=== PATIENT | female | born 2000 | race Caucasian/White ===

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

== ENCOUNTER 2022-02-12 10:43 | Emergency (ER) | payer OTHER, MEDICAID, SELFPAY ==
[2022-02-12 11:02] VITALS: BP 124/93; PULSE 93; RESP 19; TEMP 36.5; O2SAT 97
[2022-02-12 11:16] LABS: Appearance Urine UA SL CLOUDY; Bilirubin Urine UA NEGATIVE (NEGATIVE); Color Urine UA YELLOW; Glucose Urine UA NEGATIVE (Negative); Ketones Urine UA NEGATIVE (NEGATIVE); Leukocyte Esterase Urine UA NEGATIVE (NEGATIVE); Nitrite Urine UA NEGATIVE (Negative); Occult Blood Urine UA 3+ (Negative); Protein Urine UA NEGATIVE (Negative); Urobilinogen Urine UA 0.2 E.U./dL (0.2)
[2022-02-12 11:18] LABS: Pregnancy Test Urine Negative (Negative)
[2022-02-12 11:28] LABS: Bacteria Urine Occasional (0-1); Culture Indicated Urine Cult Not Indicated; RBC Urine 30-100/HPF (0-5/HPF); Squamous Epithelial Cell Urine 1-5 /HPF (0-5/HPF); Transitional Epi Cells Urine 1-5/HPF (0-5/HPF); WBC Urine 0-1/HPF (0-5/HPF)
[2022-02-12 11:29] LABS: Add Manual Diff / Slide Review NO; Basophils Absolute Auto 0 /uL (0-100); Basophils Percent Auto 0.6 % (0-2); Eosinophils Absolute Auto 100 /uL (0-450); Eosinophils Percent Auto 2.4 % (2-4); Hematocrit 40.9 % (36-46); Hemoglobin 14.1 g/dL (12.0-16.0); Lymphocytes Absolute Auto 1400 /uL (1100-4500); Lymphocytes Percent Auto 32.5 % (25-40); Mean Corpuscular HGB Conc 34.5 % (30-36); Mean Corpuscular Hemoglobin 29.7 PG (26-34); Mean Corpuscular Volume 86.2 fL (80-100); Monocytes Absolute Auto 400 /uL (0-900); Monocytes Percent Auto 9.8 % (3-14); Neutrophils Absolute Auto 2300 /uL (1500-7000); Neutrophils Percent Auto 54.7 % (50-75); Platelet Count 243 X10^3/uL (150-400); Red Blood Cell Count 4.75 X10^6/uL (4.0-5.2); Red Cell Distribution Width 13.5 % (11.6-14.8); White Blood Cell Count 4.2 X10^3/uL (4.5-11.0)
[2022-02-12 11:39] LABS: BUN Creatinine Ratio 15.7 (6-22); Blood Urea Nitrogen 11 mg/dL (7-17); Calcium 8.5 mg/dL (8.4-10.2); Carbon Dioxide 24 mmol/L (22-32); Chloride 105 mmol/L (98-107); Estimated Glomerular Filt Rate > 60 mL/min (>60); Glucose 97 mg/dL (70-100); HEMOLYSIS < 15 (0-50); Sodium 138 mmol/L (137-145)
--- NOTE | 2022-02-12 12:19 | DI.US.S_ITS ---
PROCEDURE: US PELVIC COMPLETE INDICATIONS: vag bleeding TECHNIQUE: Real-time scanning was performed of the pelvic organs, with image documentation. Additional endovaginal scanning was necessary due to incomplete visualization of the adnexal and endometrial structures by transabdominal scanning. COMPARISON: [facility], , US PELVIC COMPLETE, 10/09/2019, 13:19. FINDINGS: Uterus: Uterus is anteverted measuring 6.5 x 3.8 x 3.8 cm. Endometrium measures 2 mm. Echotexture is overall homogeneous. Cervix is within normal limits. Ovaries: Right ovary has a volume of 27 cc. The left ovary has a volume of 25 cc. Dominant right ovarian cyst measures 3.5 x 2.6 x 3 cm. Dominant left ovarian cyst measures 3.2 x 2.5 x 3 cm. There are fewer than 12 follicles per ovary. Color and spectral doppler: flows are documented Other: Physiologic fluid is present IMPRESSION: Dominant bilateral follicles/cysts. For this patient demographic, no dedicated follow-up is necessary unless the patient develops new/worsening symptoms. Unremarkable sonographic evaluation of the uterus. We strive to produce accurate, complete, and clear reports of imaging services. To assist us in improving patient care, this report was composed using standard report templates and voice recognition software. Therefore, it may contain abnormal punctuation, insertions and/or omissions. Occasional wrong-word or sound-alike substitutions may occur. Though we review the report and make efforts to correct it, we do recommend that the report be read carefully in proper context to recognize any text inaccuracies. Dictated by: Anthony Cho M.D. on 02/12/2022 at 13:42 Approved by: Anthony Cho M.D. on 02/12/2022 at 13:45
--- NOTE | 2022-02-12 12:34 | ED.PREGNANCY ---
HPI - General Chief complaint: Vaginal Bleeding Stated complaint: extreme bleeding not her period Time Seen by Provider: 02/12/22 12:16 Source: patient Mode of arrival: Family Vehicle Limitations: no limitations History of Present Illness HPI Narrative: This is a 21-year-old female with history of ovarian cysts and C diff who is not currently on oral antibiotics for C diff. patient states she has been having vaginal bleeding and irregular periods. She had her last Depo shot in late August or September of 2021. Patient states she started having periods in December at the beginning of the month. She had about 5 days of bleeding being of this month from the to and then started having bleeding, clots since spotting last night as well. She is had pelvic cramping particularly on the left side. Patient states she is trying to get actively. She has a known left ovarian cyst. She denies fevers or chills, occasional nausea no active vomiting. She is had persistent diarrhea she is following in terms of her C diff and they are going to potentially retest her but has not had significantly worsening symptoms. Patient does have OBGYN that she follows with and has follow-up in the next month. Denies any drug allergies. She took a muscle relaxer last night as well as 600 mg of ibuprofen which helped her sleep but ibuprofen alone has been minimally helpful. No syncope or passing out, no chest pain or shortness of breath. No new vaginal discharge or odor. No urinary symptoms. Patient defers pelvic exam for STIs or vaginal infections. Related Data Previous Rx's Medication Instructions Recorded ondansetron 4 mg disintegrating 4 mg PO Q8H PRN nausea and 10/09/19 tablet vomiting #10 tabs meloxicam 7.5 mg tablet 7.5 mg PO BID PRN pain #14 tabs 02/12/22 Allergies Allergy/AdvReac Type Severity Reaction Status Date / Time No Known Drug Allergies Allergy Verified 10/09/19 11:19 Review of Systems Review of Systems ROS Unobtainable: All systems reviewed & are unremarkable except as noted in HPI and below Exam Narrative Exam Narrative: GENERAL: Alert and oriented x three, well-appearing female in mild distress HEENT: Head normocephalic, atraumatic, EOMI, pupils reactive, face symmetric, moist mucous membranes NECK: Supple, full range of motion CARDIOVASCULAR: Regular rate and rhythm without murmurs, rubs or gallops. RESPIRATORY: Breath sounds equal bilaterally, no wheezes rales or rhonchi. ABDOMEN: Soft, mild left lower quadrant tenderness.. Normoactive bowel sounds all 4 quadrants. No guarding or rebound, rigidity, no mass : No CVA tenderness. Patient politely defers pelvic exam. EXTREMITIES: Normal range of motion, no clubbing or edema. Neurovascularly intact NEUROLOGICAL: Cranial nerves II through XII grossly intact. Moving all extremities SKIN: Warm, dry, no petechiae, no rashes or lesions. Initial Vital Signs Initial Vital Signs: Vital Signs Temperature 97.7 F 02/12/22 11:02 Pulse Rate 93 H 02/12/22 11:02 Respiratory Rate 19 02/12/22 11:02 Blood Pressure 124/93 H 02/12/22 11:02 Pulse Oximetry 97 02/12/22 11:02 Oxygen Delivery Method 02/12/22 11:02 Course Orders Ordered: ED Orders 02/12/22 11:08 Test Urine Stat Urinalysis and Microscopic Stat 02/12/22 11:16 CBC Auto Diff [Complete Blood Count AUTO DIFF] Stat CHEM7 [Basic Metabolic Panel] Stat Test Serum,Qual Stat Type and Screen Stat 02/12/22 12:19 US pelvic complete Stat Vital Signs Vital signs: Vital Signs - 8 hr 02/12/22 11:02 Temperature 97.7 F Pulse Rate 93 H Respiratory Rate 19 Blood Pressure 124/93 H Pulse Oximetry 97 Oxygen Delivery Method Room Air MDM - OB/Uterine Contractions Lab Data Result diagrams: 02/12/22 11:16 02/12/22 11:16 Labs: Lab Results 02/12/22 02/12/22 02/12/22 Range/Units 11:08 11:08 11:16 WBC 4.2 L (4.5-11.0) X10^3/uL RBC 4.75 (4.0-5.2) X10^6/uL Hgb 14.1 (12.0-16.0) g/dL Hct 40.9 (36-46) % MCV 86.2 (80-100) fL MCH 29.7 (26-34) PG MCHC 34.5 (30-36) % RDW 13.5 (11.6-14.8) % Plt Count 243 (150-400) X10^3/uL Neut % (Auto) 54.7 (50-75) % Lymph % (Auto) 32.5 (25-40) % Norton % (Auto) 9.8 (3-14) % Eos % (Auto) 2.4 (2-4) % Baso % (Auto) 0.6 (0-2) % Neut # (Auto) 2300 (9219-7219) /uL Lymph # (Auto) 1400 (4010-5576) /uL Norton # (Auto) 400 (0-900) /uL Eos # (Auto) 100 (0-450) /uL Baso # (Auto) 0 (0-100) /uL Sodium (137-145) mmol/L Potassium (3.4-5.1) mmol/L Chloride (98-107) mmol/L Carbon Dioxide (22-32) mmol/L BUN (7-17) mg/dL Creatinine (0.52-1.04) mg/dL Estimated GFR (>60) mL/min BUN/Creatinine Ratio (6-22) Glucose (70-100) mg/dL Calcium (8.4-10.2) mg/dL Serum , Qual (Negative) Urine Color Yellow Urine Appearance Sl cloudy Urine pH 7.0 (4.5-8.0) Ur Specific [place] 1.010 (1.000-1.035) Urine Protein Negative (Negative) Urine Glucose (UA) Negative (Negative) g/dL Urine Ketones Negative (NEGATIVE) Urine Occult Blood 3+ H (Negative) Urine Nitrate Negative (Negative) Urine Bilirubin Negative (NEGATIVE) Urine Urobilinogen 0.2 (0.2) E.U./dL Ur Leukocyte Esterase Negative (NEGATIVE) Urine RBC 30-100/hpf H (0-5/HPF) Urine WBC 0-1/hpf (0-5/HPF) Ur Squamous Epith Cells 1-5 /hpf (0-5/HPF) Ur Transition Epith Cell 1-5/hpf (0-5/HPF) Urine Bacteria Occasional (0-1) (None) Ur Culture Indicated? Cult not indicated Urine Test Negative (Negative) Blood Type Antibody Screen 02/12/22 02/12/22 02/12/22 Range/Units 11:16 11:16 11:16 WBC (4.5-11.0) X10^3/uL RBC (4.0-5.2) X10^6/uL Hgb (12.0-16.0) g/dL Hct (36-46) % MCV (80-100) fL MCH (26-34) PG MCHC (30-36) % RDW (11.6-14.8) % Plt Count (150-400) X10^3/uL Neut % (Auto) (50-75) % Lymph % (Auto) (25-40) % Norton % (Auto) (3-14) % Eos % (Auto) (2-4) % Baso % (Auto) (0-2) % Neut # (Auto) (1720-6282) /uL Lymph # (Auto) (2073-7326) /uL Norton # (Auto) (0-900) /uL Eos # (Auto) (0-450) /uL Baso # (Auto) (0-100) /uL Sodium 138 (137-145) mmol/L Potassium 4.0 (3.4-5.1) mmol/L Chloride 105 (98-107) mmol/L Carbon Dioxide 24 (22-32) mmol/L BUN 11 (7-17) mg/dL Creatinine 0.70 (0.52-1.04) mg/dL Estimated GFR > 60 (>60) mL/min BUN/Creatinine Ratio 15.7 (6-22) Glucose 97 (70-100) mg/dL Calcium 8.5 (8.4-10.2) mg/dL Serum , Qual Negative (Negative) Urine Color Urine Appearance Urine pH (4.5-8.0) Ur Specific [place] (1.000-1.035) Urine Protein (Negative) Urine Glucose (UA) (Negative) g/dL Urine Ketones (NEGATIVE) Urine Occult Blood (Negative) Urine Nitrate (Negative) Urine Bilirubin (NEGATIVE) Urine Urobilinogen (0.2) E.U./dL Ur Leukocyte Esterase (NEGATIVE) Urine RBC (0-5/HPF) Urine WBC (0-5/HPF) Ur Squamous Epith Cells (0-5/HPF) Ur Transition Epith Cell (0-5/HPF) Urine Bacteria (None) Ur Culture Indicated? Urine Test (Negative) Blood Type B Positive Antibody Screen Negative Imaging Data US - LONGITUDINAL FLOAT OPERATOR: Radiologist's Impression: Close Pelvis Ultrasound (Signed) [facility] - 10/09/19 Launch?Image [address] [address] Ultrasound Report Signed Patient: Ning House MR#: [id number] : 2000 Acct:[id number] Age/Sex: 19 / F Date of Service: 10/09/19 Loc: ED Accession Number: [id number] ?? Procedure: US pelvic complete Ordering Provider: Lizzie Johnson D.O. PROCEDURE:? US PELVIC COMPLETE ? INDICATIONS:? LLQ PAIN LMP 09/04/2019. ? TECHNIQUE:? Real-time scanning was performed of the pelvic organs, with image documentation.? Additional endovaginal scanning was necessary due to incomplete visualization of the adnexal and endometrial structures by transabdominal scanning.? ? COMPARISON:? None. ? FINDINGS:? Transabdominal scanning:? Limited scanning through the kidneys shows no hydronephrosis. Trace fluid in the pelvic cul-de-sac. ? Endovaginal scanning:? Uterus:? Uterus is anteverted and normal in size at 8.1 x 4.6 x 3.6 cm.? no mass. The endometrium measures 16 mm in combined thickness.? ? Ovaries: Within normal limits. Color flow seen in both ovaries. The right ovary measures 2.9 x 2 x 1.8 cm. Left ovary measures 4 x 3.5 x 2.9 cm. ? Left ovarian cyst measuring 3.2 x 3.1 x 2.6 cm. The cyst is mostly anechoic with a small mural nodule or debris at the inferior aspect. No internal vascularity is seen. ? ? IMPRESSION: 1. Left ovarian cyst measuring 3.2 cm. This is in the region of tenderness. The cyst is mostly simple but appears to have a small mural nodule versus debris. This cyst is likely the source of left lower quadrant pain. -Recommend short-term interval followup pelvic ultrasound in this young patient. ? 2. Trace free fluid in the pelvic cul-de-sac is likely physiologic. ? 3. Endometrial thickness measures 16 mm and is within normal limits. ? Dictated by: Chalo Degroot M.D. on 10/09/2019 at 14:20 ? ? Approved by: Chalo Degroot M.D. on 10/09/2019 at 14:26 ? ?? MDM Narrative Medical decision making narrative: This is a 21-year-old female with history of ovarian cyst. Patient states 3.2 cm slightly larger in her prior ultrasounds but she is aware of it states always been on the left side. Labs do not show significant change today patient had asked for serum HCG she is had recent bleeding making less likely had been on Depo until about 4 months ago but qualitative is negative. Pelvic ultrasound shows normal endometrial lining, no fibroids or other changes, ovarian cyst in area patient's discomfort. Patient is anxious about getting and wants to be . Discussed will probably take some time and normal time frames for once stopping control particularly Depo shots. Need for follow-up patient has this available to her. And return precautions. Discharge Plan Departure Patient Disposition: Home Clinical Impression: Vaginal bleeding Ovarian cyst Qualifiers: Laterality: left Qualified Code(s): N83.202 - Unspecified ovarian cyst, left side Instructions: DI for Vaginal Bleeding Activity Restrictions/Additional Instructions: Your imaging today shows a left ovarian cyst, it is recommended you have follow-up pelvic ultrasound in the next several weeks, please follow-up with OBGYN or primary care to have this done. The size today of your ovarian cyst is 3.2 cm. It is abnormal to take several months to get when you are trying, also if you had your Depo shot the beginning of the summer there still may be some residual and this can be altering your cycles as well. You can take meloxicam 1 tablet every 12 hours as needed for pain. If in adequate you can take Tylenol up to a 1000 mg every 6 hours with this. Prescription sent to [facility] Please return for fevers, passing out, rapidly worsening pain, persistent vomiting, going through more than a pad an hour persistently, or other new or concerning changes. Prescriptions: New meloxicam 7.5 mg tablet 7.5 mg PO BID PRN (Reason: pain) Qty: 14 0RF No Action ondansetron 4 mg tablet,disintegrating 4 mg PO Q8H PRN (Reason: nausea and vomiting) Qty: 10 0RF Referrals: Muriel Hightower MD [Primary Care Provider] - Visit Report Forms: Patient Portal/API
[2022-02-12 13:09] LABS: Pregnancy Test Serum,Qual Negative (Negative)
== END 2022-02-12 13:30 | disposition home or self-care (01) ==
PROVIDERS: Emergency Provider Emergency Medicine; PCP Family Medicine
DX: N83.202 Unspecified ovarian cyst, left side (principal); N93.9 Abnormal uterine and vaginal bleeding, unspecified
CPT/HCPCS: 76830; 76856; 80048; 81001; 81025; 84703; 85025; 86850; 86900; 86901; 93976; 99283; 99284

== ENCOUNTER 2022-05-22 12:25 | Emergency (ER) | payer OTHER, MEDICAID, SELFPAY ==
[2022-05-22 12:34] VITALS: BP 124/87; PULSE 113; RESP 18; TEMP 36.6; O2SAT 100; BMI 24.5
--- NOTE | 2022-05-22 14:27 | DI.US.S_ITS ---
PROCEDURE: US PELVIC COMPLETE INDICATIONS: ABNORMAL BLEEDING TECHNIQUE: Real-time scanning was performed of the pelvic organs, with image documentation. Additional endovaginal scanning was necessary due to incomplete visualization of the adnexal and endometrial structures by transabdominal scanning. COMPARISON: [facility], , US PELVIC COMPLETE, 02/12/2022, 12:50. FINDINGS: Uterus: Uterus is anteverted and normal in size at 8.3 x 2.8 x 4.8 cm. The myometrium is homogeneous. The endometrium measures 3.0 mm combined thickness. No focal uterine mass Ovaries: The right ovary measures 2.8 x 1.6 x 2.4 cm. The left ovary measures 3.9 x 3.6 x 3.8 cm. Bilateral ovarian cysts, largest of which measuring 12 mm on the right and 32 mm on the left. Other: No pathologic free abdominal or pelvic fluid. IMPRESSION: 1. No acute process. We strive to produce accurate, complete, and clear reports of imaging services. To assist us in improving patient care, this report was composed using standard report templates and voice recognition software. Therefore, it may contain abnormal punctuation, insertions and/or omissions. Occasional wrong-word or sound-alike substitutions may occur. Though we review the report and make efforts to correct it, we do recommend that the report be read carefully in proper context to recognize any text inaccuracies. Dictated by: Michaela Tolentino M.D. on 05/22/2022 at 16:08 Approved by: Michaela Tolentino M.D. on 05/22/2022 at 16:09
[2022-05-22 14:30] LABS: Add Manual Diff / Slide Review NO; Basophils Absolute Auto 0 /uL (0-100); Basophils Percent Auto 0.6 % (0-2); Eosinophils Absolute Auto 100 /uL (0-450); Eosinophils Percent Auto 1.5 % (2-4); Lymphocytes Absolute Auto 1400 /uL (1100-4500); Lymphocytes Percent Auto 31.8 % (25-40); Mean Corpuscular Hemoglobin 29.8 PG (26-34); Mean Corpuscular Volume 87.5 fL (80-100); Monocytes Absolute Auto 300 /uL (0-900); Monocytes Percent Auto 8.2 % (3-14); Neutrophils Absolute Auto 2500 /uL (1500-7000); Neutrophils Percent Auto 57.9 % (50-75); Platelet Count 250 X10^3/uL (150-400); Red Blood Cell Count 5.02 X10^6/uL (4.0-5.2); Red Cell Distribution Width 12.9 % (11.6-14.8); White Blood Cell Count 4.3 X10^3/uL (4.5-11.0)
[2022-05-22 14:39] LABS: BUN Creatinine Ratio 16.9 (6-22); Blood Urea Nitrogen 12 mg/dL (7-17); Calcium 8.8 mg/dL (8.4-10.2); Carbon Dioxide 23 mmol/L (22-32); Chloride 106 mmol/L (98-107); Estimated Glomerular Filt Rate > 60 mL/min (>60); Glucose 91 mg/dL (70-100); HEMOLYSIS < 15 (0-50); Sodium 140 mmol/L (137-145)
--- NOTE | 2022-05-22 16:02 | PC.NURSE ---
Addendum entered by Tesha Reed R.N. 05/22/22 16:05: 1420, at this time I collected a 2cm x 0.5cm piece of tissue into specimen cup which patient says she passed from her vagina. Has passed several specimens like this of larger size including some the size of golf balls. States she had a miscarriage 2 months ago, but she had serial HCGs which came back at 0. States she sees an OB for this however he hasn't been listening to me about this. She also reports dizziness intermittently. Urine specimen collected at this time. Original Note: 1420, at this time I collected a 2cm x 0.5cm piece of tissue into specimen cup which patient says she passed from her vagina. Has passed several specimens like this of larger size including some the size of golf balls. States she had a miscarriage 2 months ago, but she had serial HCGs which came back at 0. States she sees an OB for this however he hasn't been listening to me about this. She also reports dizziness intermittently. Urine specim
[2022-05-22 16:12] VITALS: BP 109/68; PULSE 83; O2SAT 100
--- NOTE | 2022-05-22 19:23 | ED_ITS ---
HPI - Female Genitourinary <Jim Moseley PA-C - Last Filed: 05/22/22 19:33> General Chief complaint: Vaginal Bleeding Stated complaint: Bleeding for 10 days, Pain Time Seen by Provider: 05/22/22 14:27 History of Present Illness HPI Narrative: 22-year-old female with no reported past medical history presents to the ED with 10 days of vaginal bleeding. Patient states that she is on Depo-Provera for the last 1-2 months. Prior to starting the Depo-Provera, patient suffered a miscarriage, was evaluated with a ultrasound and blood work to confirm that no products of conception were left behind. Patient states that she was doing well on the Depo-Provera until 10 days ago, when she started experiencing some light vaginal bleeding. However, yesterday patient reports that her vaginal bleeding got somewhat heavier, she also experienced excruciating cramping, and she passed 3 large pieces of tissue. Patient brought the last piece of tissue that she passed, which was the smallest of the lot. Patient states that she has had a history of abnormal uterine wall shedding and that she was seen by a final expense agent for it. 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 Patient states that once she passed all the pieces of tissue, her pain resolved spontaneously, her bleeding has also become rampman. Patient denies fever, chills, chest pain, shortness of breath, dysuria, nausea, vomiting, lightheadedness, dizziness, syncope. Related Data Previous Rx's Medication Instructions Recorded ondansetron 4 mg disintegrating 4 mg PO Q8H PRN nausea and 10/09/19 tablet vomiting #10 tabs meloxicam 7.5 mg tablet 7.5 mg PO BID PRN pain #14 tabs 02/12/22 Allergies Allergy/AdvReac Type Severity Reaction Status Date / Time No Known Drug Allergies Allergy Verified 05/22/22 12:36 Review of Systems <Jim Moseley PA-C - Last Filed: 05/22/22 19:33> Review of Systems ROS Unobtainable: All systems reviewed & are unremarkable except as noted in HPI and below Constitutional Constitutional: Denies chills, Denies fatigue, Denies fever(s), Denies frequent falls, Denies lethargy and Denies weakness Eyes Eyes: Denies change in vision, Denies eye discharge, Denies irritation and Denies loss of vision ENT Ears, Nose, Mouth, and Throat: Denies change in voice, Denies dizziness, Denies neck pain, Denies sore throat and Denies throat swelling Cardiovascular Cardiovascular: Denies chest pain, Denies irregular heart rhythm, Denies lightheadedness, Denies palpitations, Denies dyspnea, Denies dyspnea on exertion and Denies orthopnea Respiratory Respiratory: Denies cough, Denies dyspnea, Denies dyspnea on exertion and Denies wheezing Gastrointestinal Gastrointestinal: Denies abdominal pain, Denies change in bowel habits, Reports cramping, Denies diarrhea, Denies nausea and Denies vomiting Genitourinary Genitourinary: Reports abnormal vaginal bleeding, Denies hematuria, Denies flank pain, Denies urinary incontinence and Denies urinary urgency Musculoskeletal Musculoskeletal: Denies back pain, Denies muscle weakness, Denies neck pain, Denies numbness and Denies tingling Integumentary/Breasts Skin/Breast: Denies pruritus, Denies erythema, Denies rash and Denies wounds Neurologic Neurologic: Denies behavioral changes, Denies confusion, Denies dizziness, Denies frequent falls, Denies loss of vision, Denies numbness, Denies tingling and Denies weakness Psychiatric Psychiatric: Denies anxiety, Denies behavioral changes, Denies confusion, Denies depression, Denies homicidal ideation and Denies suicidal ideation Endocrine Endocrine: Denies fatigue, Denies flushing and Denies palpitations Hematologic/Lymphatic Hematologic/Lymphatic: Denies easy bruising Allergic/Immunologic Allergic/Immunologic: Denies urticaria, Denies throat swelling and Denies wheezi ng Patient History <Jim Moseley PA-C - Last Filed: 05/22/22 19:33> alcohol intake frequency: 0-2 drinks per day Substance Use Type: does not use Exam <Jim Moseley PA-C - Last Filed: 05/22/22 19:33> Narrative Exam Narrative: Const General:?cooperative, healthy appearing and comfortable [facility] Head:?normal to inspection Ears:?hearing grossly normal bilaterally Nose:?external nose normal Face and sinus:?normal facial exam and sinuses nontender Mouth:?oral mucosae normal Throat:?posterior oropharynx normal Eyes General:?appearance normal, both eyes and all related structures Neck Neck:?normal visual inspection and no lymphadenopathy noted Resp Effort & Inspection:?normal respiratory effort Auscultation:?clear to auscultation bilaterally Cardio Rate:?regular rate Rhythm:?regular rhythm GI Abdomen is soft, nondistended. Mildly tender to palpation in the lower quadrants. There is no CVA tenderness. Neuro General:?patient alert, patient awake and patient oriented x3 Initial Vital Signs Initial Vital Signs: Vital Signs Temperature 98 F 05/22/22 12:34 Pulse Rate 113 H 05/22/22 12:34 Respiratory Rate 18 05/22/22 12:34 Blood Pressure 124/87 05/22/22 12:34 Pulse Oximetry 100 05/22/22 12:34 Oxygen Delivery Method 05/22/22 12:34 <Lizzie Johnson DO - Last Filed: 05/25/22 02:26> Initial Vital Signs Initial Vital Signs: Vital Signs Temperature 98 F 05/22/22 12:34 Pulse Rate 113 H 05/22/22 12:34 Respiratory Rate 18 05/22/22 12:34 Blood Pressure 124/87 05/22/22 12:34 Pulse Oximetry 100 05/22/22 12:34 Oxygen Delivery Method 05/22/22 12:34 Course <Jim Moseley PA-C - Last Filed: 05/22/22 19:33> Orders Ordered: ED Orders 05/22/22 14:12 Basic Metabolic Panel Stat Complete Blood Count AUTO DIFF Stat Type and Screen Stat 05/22/22 14:27 US pelvic complete Stat Vital Signs Vital signs: Vital Signs - 8 hr 05/22/22 12:34 05/22/22 16:12 Temperature 98 F Pulse Rate 113 H 83 Respiratory Rate 18 Blood Pressure 124/87 109/68 Pulse Oximetry 100 100 Oxygen Delivery Method Room Air Room Air <Lizzie Johnson DO - Last Filed: 05/25/22 02:26> Orders Ordered: ED Orders 05/22/22 14:12 Basic Metabolic Panel Stat Complete Blood Count AUTO DIFF Stat Type and Screen Stat 05/22/22 14:27 US pelvic complete Stat Vital Signs Vital signs: Vital Signs - 8 hr 05/22/22 12:34 05/22/22 16:12 Temperature 98 F Pulse Rate 113 H 83 Respiratory Rate 18 Blood Pressure 124/87 109/68 Pulse Oximetry 100 100 Oxygen Delivery Method Room Air Room Air MDM - Female Genitourinary <Jim Moseley PA-C - Last Filed: 05/22/22 19:33> Lab Data 05/22/22 14:12 05/22/22 14:12 Labs: Lab Results 05/22/22 05/22/22 05/22/22 Range/Units 14:12 14:12 14:12 WBC 4.3 L (4.5-11.0) X10^3/uL RBC 5.02 (4.0-5.2) X10^6/uL Hgb 15.0 (12.0-16.0) g/dL Hct 44.0 (36-46) % MCV 87.5 (80-100) fL MCH 29.8 (26-34) PG MCHC 34.0 (30-36) % RDW 12.9 (11.6-14.8) % Plt Count 250 (150-400) X10^3/uL Neut % (Auto) 57.9 (50-75) % Lymph % (Auto) 31.8 (25-40) % [place] % (Auto) 8.2 (3-14) % Eos % (Auto) 1.5 L (2-4) % Baso % (Auto) 0.6 (0-2) % Neut # (Auto) 2500 (9695-2287) /uL Lymph # (Auto) 1400 (9926-0776) /uL [place] # (Auto) 300 (0-900) /uL Eos # (Auto) 100 (0-450) /uL Baso # (Auto) 0 (0-100) /uL Sodium 140 (137-145) mmol/L Potassium 4.0 (3.4-5.1) mmol/L Chloride 106 (98-107) mmol/L Carbon Dioxide 23 (22-32) mmol/L BUN 12 (7-17) mg/dL Creatinine 0.71 (0.52-1.04) mg/dL Estimated GFR > 60 (>60) mL/min BUN/Creatinine Ratio 16.9 (6-22) Glucose 91 (70-100) mg/dL Calcium 8.8 (8.4-10.2) mg/dL Blood Type B Positive Antibody Screen Negative Point of Care Testing Test Results Negative Urine Dip Bedside Urine Glucose Negative Bedside Urine Bilirubin - Negative Bedside Urine Ketone - Negative Urine Specific [place] 1.025 Bedside Urine Occult Blood - Negative Bedside Urine pH 6.0 Bedside Urine Protein - Negative Bedside Urine Urobilinogen - Negative Bedside Urine Nitrite - Negative Bedside Urine Leukocytes - Negative Esterase MDM Narrative Medical decision making narrative: 22-year-old female with no reported past medical history presents to the ED with 10 days of vaginal bleeding. Concern for decidual cast versus incomplete or threatened miscarriage versus anemia versus other. Will obtain labs, UA, urine hCG, pelvic ultrasound. Labs, UA with no acute findings. Urine hCG was negative for . Pelvic ultrasound shows bilateral ovarian cysts, but no other acute findings that would contribute to patient's symptoms. Patient's symptoms likely due to the decidual casts. Recommend patient follow-up with gynecology, referred to Dr. Dwyer. ED return precautions were discussed with patient. Patient verbalized understanding. Medical records reviewed:??Yes ? Disposition: see below, along with detailed discharge instructions that have been reviewed with patient as well as indications for ED re-evaluation and additional outpatient follow up <Lizzie Johnson DO - Last Filed: 05/25/22 02:26> Lab Data Labs: Lab Results 05/22/22 05/22/22 05/22/22 Range/Units 14:12 14:12 14:12 WBC 4.3 L (4.5-11.0) X10^3/uL RBC 5.02 (4.0-5.2) X10^6/uL Hgb 15.0 (12.0-16.0) g/dL Hct 44.0 (36-46) % MCV 87.5 (80-100) fL MCH 29.8 (26-34) PG MCHC 34.0 (30-36) % RDW 12.9 (11.6-14.8) % Plt Count 250 (150-400) X10^3/uL Neut % (Auto) 57.9 (50-75) % Lymph % (Auto) 31.8 (25-40) % [place] % (Auto) 8.2 (3-14) % Eos % (Auto) 1.5 L (2-4) % Baso % (Auto) 0.6 (0-2) % Neut # (Auto) 2500 (2281-4098) /uL Lymph # (Auto) 1400 (5588-5205) /uL [place] # (Auto) 300 (0-900) /uL Eos # (Auto) 100 (0-450) /uL Baso # (Auto) 0 (0-100) /uL Sodium 140 (137-145) mmol/L Potassium 4.0 (3.4-5.1) mmol/L Chloride 106 (98-107) mmol/L Carbon Dioxide 23 (22-32) mmol/L BUN 12 (7-17) mg/dL Creatinine 0.71 (0.52-1.04) mg/dL Estimated GFR > 60 (>60) mL/min BUN/Creatinine Ratio 16.9 (6-22) Glucose 91 (70-100) mg/dL Calcium 8.8 (8.4-10.2) mg/dL Blood Type B Positive Antibody Screen Negative Point of Care Testing Test Results Negative Urine Dip Bedside Urine Glucose Negative Bedside Urine Bilirubin - Negative Bedside Urine Ketone - Negative Urine Specific [place] 1.025 Bedside Urine Occult Blood - Negative Bedside Urine pH 6.0 Bedside Urine Protein - Negative Bedside Urine Urobilinogen - Negative Bedside Urine Nitrite - Negative Bedside Urine Leukocytes - Negative Esterase Discharge Plan Departure Patient Disposition: Home Clinical Impression: Vaginal bleeding Instructions: DI for Vaginal Bleeding Activity Restrictions/Additional Instructions: You were evaluated in the ED today for abnormal vaginal bleeding. Your labs were normal. Your ultrasound did show multiple ovarian cysts, however no other acute findings that would cause you pain or bleeding. It is likely that your bleeding and passing of the clots is due to residual casts which has to do with the way that your uterine lining sheds itself. While it might be disturbing to see and painful to experience, it is largely homeless. Please follow-up with an OBGYN. You may call Dr. Joselyn Dwyer at [phone] to schedule an appointment. Return to the ED if your vaginal bleeding worsens, you are unable to control the pain with ibuprofen and Tylenol, you experience shortness of breath or chest pain. Prescriptions: No Action ondansetron 4 mg tablet,disintegrating 4 mg PO Q8H PRN (Reason: nausea and vomiting) Qty: 10 0RF meloxicam 7.5 mg tablet 7.5 mg PO BID PRN (Reason: pain) Qty: 14 0RF Referrals: Muriel Hightower MD [Primary Care Provider] - Stand Alone Forms: Patient Portal/API <Lizzie Johnson DO - Last Filed: 05/25/22 02:26> Cosign ED Attending Cosignature Attestation: I was immediately available in the department for consultation. Documentation has been reviewed.
== END 2022-05-22 16:37 | disposition home or self-care (01) ==
PROVIDERS: Emergency Medicine; Emergency Provider Student in an Organized Health Care Education/Training Program; PCP Family Medicine
DX: N93.9 Abnormal uterine and vaginal bleeding, unspecified (principal)
CPT/HCPCS: 36415; 76856; 80048; 81003; 81025; 85025; 86850; 86900; 86901; 99284

== ENCOUNTER 2024-08-16 12:49 | Outpatient (CLI) | payer OTHER, SELFPAY ==
[2024-08-16 13:17] LABS: Bilirubin Urine UA NEGATIVE (NEGATIVE); Color Urine UA YELLOW; Glucose Urine UA NEGATIVE (Negative); Ketones Urine UA NEGATIVE (NEGATIVE); Leukocyte Esterase Urine UA 2+ (NEGATIVE); Nitrite Urine UA NEGATIVE (Negative); Occult Blood Urine UA NEGATIVE (Negative); Protein Urine UA NEGATIVE (Negative); Specific Gravity Urine UA 1.015 (1.000-1.035); Urobilinogen Urine UA 0.2 E.U./dL (0.2)
[2024-08-16 13:19] LABS: Appearance Urine UA SL CLOUDY
[2024-08-16 13:36] LABS: Bacteria Urine Few (2-10); Culture Indicated Urine Specimen Cultured; RBC Urine None Seen (0-5/HPF); Squamous Epithelial Cell Urine 1-5 /HPF (0-5/HPF); Urine Volume 10mL (spun); WBC Urine 0-1/HPF (0-5/HPF)
--- NOTE | 2024-08-16 14:54 | P.TNLD_ITS ---
Visit Information Visit Information Date of evaluation: 08/16/24 On-call OB Provider: Cher Alfaro Reason for Evaluation: Yes rule out labor Comments/Additional reasons for admission: EDC 09/10 at 36 weeks 3 days getting care from a senior embedded software engineer presents to labor and concerned about possible labor. She has been having irregular cramping since yesterday. She was concerned perhaps leakage of fluid. Vital Signs Vital Signs: Blood pressure 122/70 pulse 79, temperature 36.4? Review of Systems Review of Systems Narrative: Patient has good movement. She is having abdomen and back pain that come and go. Unsure of possible leakage of fluid. No vaginal bleeding. Objective Labs Labs: Laboratory Results - last 24 hr 08/16/24 13:05 Urine Color Yellow Urine Appearance Sl cloudy Urine pH 7.0 Ur Specific [place] 1.015 Urine Protein Negative Urine Glucose (UA) Negative Urine Ketones Negative Urine Occult Blood Negative Urine Nitrate Negative Urine Bilirubin Negative Urine Urobilinogen 0.2 Ur Leukocyte Esterase 2+ H Urine RBC None seen Urine WBC 0-1/hpf Ur Squamous Epith Cells 1-5 /hpf Urine Bacteria Few (2-10) H Ur Culture Indicated? Specimen cultured Vol Urine Centrifuged 10ml (spun) Evaluation Evaluation Baseline heart rate: 120 Variability: Moderate (11-25) monitor accelerations: Present Monitor Decelerations: Absent Uterine Contraction Intensity: Mild Category of Tracing: Reactive Status: Category l Non-invasive Membranes Rupture Test: negative Diagnosis, Plan/Disposition Final Diagnosis (1) 36 weeks gestation of : Status: Acute (2) False labor: Status: Acute Plan/Disposition Plan: Patient reassured no evidence of rupture membranes and not actively pacheco. Follow-up with her senior embedded software engineer. OB Disposition: home
== END 2024-08-16 14:00 | disposition home or self-care (01) ==
LOC: LABOR 13:13 → OB 08-18 09:58
PROVIDERS: PCP Family Medicine; Referring Provider Specialist; Visit Provider Specialist
DX: O47.03 False labor before 37 completed weeks of gestation, third trimester (principal); Z3A.36 36 weeks gestation of pregnancy
CPT/HCPCS: 59025; 81001; 84112; 87077; 87086; 87186; G0378; G0379